=== PATIENT | female | born 1955 | race Caucasian/White ===

== ENCOUNTER 2025-03-03 10:54 | Emergency (ER) | payer MEDICARE ==
[~2025-03-03] VITALS: Ht 162.6 cm; Wt 63.6 kg
--- NOTE | 2025-03-03 11:02 | Physician Documentation ---
History of Present Illness ~ Chief Complaint: Headache Stated Complaint: SZ Time Seen by MD: 12:36 Source: patient, family HPI Patient is a very pleasant 69-year-old female that presents to the emergency department for evaluation of headache and pressure behind her eyes. Patient reports that the headache is moderate but not as bad as her previous headaches. Patient has a essential tremors at baseline. Patient denies any additional neurological symptoms at this time. 69-year-old female history of seizure disorder presenting for headache. She reports mild headache yesterday evening which gradually worsened throughout the night and then into this morning. She developed bilateral frontal eye pain with mild photophobia. She had no visual changes. No speech changes no gait abnormalities or weakness. Her headache is improving at the time I evaluate her. She denies any ocular complaints currently Medication Reconciliation Allergies: Coded Allergies: No Known Allergies (Unverified , 03/03/25) Scheduled Buspirone Hcl* (Buspar*), 1 TAB PO BID, (Reported) Donepezil Hcl (Aricept), 1 TAB PO DAILY, (Reported) Fluoxetine HCl (Fluoxetine HCl), 1 CAP PO DAILY, (Reported) Lamotrigine (Lamotrigine), 1 TAB PO BID, (Reported) Levetiracetam (Levetiracetam), 1 TAB PO BID, (Reported) Miscellaneous Medications Gabapentin (Gabapentin ER), (Reported) Review of Systems All Other Systems at this time: Reviewed and Negative Constitutional: Denies: fever Eyes: Reports: pain, photophobia; Denies: blurred vision, double vision, redness Respiratory: Denies: cough, orthopnea, shortness of breath Cardiovascular: Denies: chest pain Gastrointestinal: Denies: abdominal pain Physical Exam Vital Signs: RN Vital Signs have been reviewed: Yes, Temperature: 98.5, Source: Temporal, Heart Rate: 64, Respiratory Rate: 18, BP: 136/69, Pulse Oximetry: 99, Weight: 63.640 Oxygen Flow Rate: 0 General Appearance Well-appearing no acute distress resting comfortably In bed Moist mucous membranes Scalp atraumatic Extraocular motions intact Pupils PERRLA Cranial nerves 2-12 intact No aphasia No dysmetria Normal gait Intact sensation 5/5 bilateral upper and lower extremity strength Lungs CTAB Cardiac no murmur Abdomen soft nontender Lower extremity no edema Skin pink warm dry well-perfused MSK moving all extremities. No C-spine tenderness. Intact neck range of motion Progress Results/Orders Reviewed/noted all lab results: Yes Results/Orders Orders - VANESSA AMAYA MD Ct Head (03/03/25 13:48) Completed Orders - VANESSA AMAYA MD Ct Head (03/03/25 13:48) Ibuprofen Tablet (Motrin Tablet) (03/03/25 12:55) Medications Received in ER Medications (Trade) Dose Ordered Sig/Rimma Route PRN Reason Start Time Stop Time Status Last Admin Dose Admin (Motrin tablet) 400 mg ONCE ONCE PO 03/03/25 12:55 03/03/25 12:57 DC 03/03/25 13:12 400 MG Vital Signs 03/03/25 03/03/25 03/03/25 03/03/25 10:56 12:17 12:21 13:17 Temp 98.5 97.0 97.1 Pulse 64 58 52 Resp 18 18 16 18 B/P (MAP) 136/69 146/58 (87) 140/59 (86) Pulse Ox 99 98 99 O2 Flow Rate 0 0 0 03/03/25 13:57 Temp 97.1 Pulse 51 Resp 16 B/P (MAP) 143/71 (95) Pulse Ox 99 O2 Flow Rate 0 Laboratory Tests Test 03/03/25 11:47 White Blood Count 4.5 Red Blood Count 3.95 L Hemoglobin 12.6 Hematocrit 38.5 Mean Corpuscular Volume 97.6 Mean Corpuscular Hemoglobin 32.1 H Mean Corpuscular Hemoglobin Concent 32.8 L Red Cell Distribution Width 13.0 Platelet Count 288 Mean Platelet Volume 7.5 Neutrophils (%) (Auto) 63.7 Lymphocytes (%) (Auto) 23.8 Monocytes (%) (Auto) 6.4 Eosinophils (%) (Auto) 4.9 Basophils (%) (Auto) 1.2 H Neutrophils # (Auto) 2.8 Lymphocytes # (Auto) 1.1 Monocytes # (Auto) 0.3 Eosinophils # (Auto) 0.2 Basophils # (Auto) 0.1 CBC Comment Sodium Level 141 Potassium Level 3.6 Chloride Level 104 Carbon Dioxide Level 32.6 H Anion Gap 4 L Blood Urea Nitrogen 23 H Creatinine 1.12 H Estimated GFR/1.73 m2 48 BUN/Creatinine Ratio 20.5 H Glucose Level 68 L Calcium Level 9.0 Total Bilirubin 0.3 Aspartate Amino Transf (AST/SGOT) 22 Alanine Aminotransferase (ALT/SGPT) 17 Alkaline Phosphatase 106 Total Protein 8.0 Albumin 3.8 Globulin 4.2 Albumin/Globulin Ratio 0.9 L Chemistry Comments EKG/XRAY/CT/US/VASC/MRI CT : Impression CT head independently interpreted by myself shows no acute intracranial abnormality Medical Decision Making Additional information obtaine: family Findings 69 year year old female history of seizure disorder presenting for headache. Gradual onset and gradual improvements. By time I see her in the ED she is steadily improving. She also had complained of some pain behind both of her eyes. But no visual changes. When I see her she is well-appearing no distress normal neuro exam benign physical exam. Her pain resolved with a dose of ibuprofen. Her CT head was unremarkable. Differential Dx:Considerations: Include: Other Additional Comment Considered CVA, intracranial hemorrhage, migraine, glaucoma, other causes of headache Departure Disposition: HOME / SELF CARE / HOMELESS Impression: Primary Impression: Headache Qualified Codes: R51.9 - Headache, unspecified Additional Instructions: If you have reoccurrence of your headache or you develop fever please return to the emergency department otherwise drink plenty of fluids get plenty of rest and follow up with your primary care doctor Referrals: NO PRIMARY CARE PROVIDER (PCP) Signature Scribe Signature: na Attestation: KARINA Medellin Mar 03, 2025 11:02 VANESSA AMAYA MD Mar 03, 2025 12:55
[2025-03-03 12:07] LABS: MEAN PLATELET VOLUME 7.5 FL (7.4-10.4); RED CELL DISTRIBUTION WIDTH 13.0 % (11.5-14.5)
[2025-03-03 12:25] LABS: CREATININE 1.12 MG/DL (0.40-0.90); TOTAL CARBON DIOXIDE 32.6 MMOL/L (24-32); eCRCL 40 ML/MIN; eGFR 48 ML/MIN
[2025-03-03] MEDS ORDERED: LEVE500T PO (12:31)
[2025-03-03] MEDS ORDERED: GABA300T28 (12:31)
[2025-03-03] MEDS ORDERED: BUSP5TAB3 PO (12:31)
[2025-03-03] MEDS ORDERED: FLUO-167 PO (12:31)
[2025-03-03] MEDS ORDERED: LAMO200T10 PO (12:31)
[2025-03-03] MEDS ORDERED: DONE10TA44 PO (12:31)
[2025-03-03] MEDS: ibuprofen tablet 400 MG TABLET PO ONE (13:12)
[2025-03-03 13:57] VITALS: BP 143/71; PULSE 51; RESP 16; TEMP 97.1; O2SAT 99
--- NOTE | 2025-03-03 14:07 | RADIOLOGY REPORT ---
CT CT HEAD Indication: headache EXAM DATE: 03/03/2025 01:40 PM COMPARISON: None TECHNIQUE: CT of the head without intravenous contrast. RADIATION DOSE: CTDIvol: 55 mGy, DLP: 1091 mGy*cm FINDINGS: There is no intracranial hemorrhage. There is no extra-axial fluid, mass, mass effect or midline shift. The ventricles are midline and normal in size. Basilar cisterns are patent. Mild periventricular and subcortical white matter chronic microvascular ischemic changes. Mild global cerebral volume loss. The paranasal sinuses and mastoids are well-pneumatized. Imaged portion of the orbits are unremarkable. IMPRESSION: No intracranial hemorrhage or mass effect. Mild chronic microvascular ischemic changes.
== END 2025-03-03 14:33 | disposition home or self-care (01) ==
LOC: ER 10:54
DX: R51.9 Headache, unspecified (principal); Z79.899 Other long term (current) drug therapy
CPT/HCPCS: 36415; 70450; 80053; 85025; 99284